=== PATIENT | female | born 1985 | race Caucasian/White ===

== ENCOUNTER 2021-02-04 14:58 | Emergency (ER) | payer OTHER ==
--- OUTSIDE RECORDS SUMMARY | 2021-02-04 15:01 | XMS REPORT | Continuity of Care Document ---
:1985 Author Organization [facility] t Address [address] [place] [address] Care Team Providers Name Role Phone Steven Primary Care Physician Unavailable Fabian Hansen DO Attending Clinician Lab, Fam Pob I Attending Clinician Unavailable Hemalatha FAULKNER Attending Clinician Mina SAWYER Attending Clinician Unavailable Piedad Carlson Attending Clinician Unavailable Payers Payer Name Policy Type Policy Effective Expiration Source Number Date Date 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 Family History Family Member Diagnosis Comments Start Date Stop Date Source Natural father Hyperlipidemia Leighannto n Spiritism Maternal Multiple sclerosis Leighannto n Spiritism grandfather Natural mother Arthritis Primo Me thodist Social History Social Habit Start Date Stop Date Quantity Comments Source Tobacco use and 2020-05-31 2020-05-31 Never used Primo Jackson ethodist exposure 00:00:00 00:00:00 Alcohol intake 2020-05-31 2020-05-31 Current drinker Carina on Spiritism 00:00:00 00:00:00 of alcohol (finding) Sex [birth year] F Primo Jackson ethodist 00:00:00 00:00:00 Smoking Status Start Date Stop Date Source Never smoker [place] Ericais t Medications Ordered Filled Start Stop Current Ordering Indication Dosage Frequency Signature Comments Components Source Medication Medication Date Date Medication? Clinician (SIG) Name Name budesonide- Yes 2{puff} Inhale 2 [place] formoteroL 8- puffs as Metho di (SYMBICORT) 08:26: needed. st 160-4.5 13 mcg/actuati on inhaler fluticasone Yes 2{spray 2 sprays [place] propionate 05-31 } by Each Method i (FLONASE) 08:26: Nare route st 50 13 as needed mcg/actuati for on nasal rhinitis. spray abatacept/m 2019-0 Yes Q30D every 30 [place] altose 7-21 (thirty) Methodi (ORENCIA, 00:00: days. st WITH 00 MALTOSE, IV) gabapentin 2019- Yes 600mg QD 600 mg [place] (NEURONTIN) 01 nightly. Meth noe 300 mg 00:00: st capsule 00 amphetamine 2019-0 Yes daily. [place] -dextroamph 10-06 [facility] etamine XR 00:00: st (Adderall 00 XR) 30 MG 24 hr capsule DULoxetine 2018-10 Yes 1{capsu Take 1 [place] (CYMBALTA) 0-22 le} capsule by Met hodi 60 MG 00:00: mouth st capsule 00 daily. meloxicam 2018-10 Yes 1{tbl} Take 1 [place] (MOBIC) 15 0-22 tablet by Meth noe mg tablet 00:00: mouth st 00 daily. cyanocobala 2016-0 Yes daily. Leighann hutton min, 10-06 Methodi vitamin 00:00: st B-12, (B-12 00 Compliance) 1,000 mcg/mL kit cholecalcif 2013-0 Yes daily. Leighann hutton kevin, 10-06 [facility] vitamin D3, 00:00: st 50 mcg 00 (2,000 unit) capsule capsule cetirizine Yes 10mg Take 10 mg [place] (ZyrTEC) 10 10-06 by mouth Meth noe MG tablet 00:00: daily. st 00 Vital Signs Vital Name Observation Time Observation Value Comments Source Body weight 2020-06-05 19:00:00 62.596 kg Primo Nath BMI 2020-06-05 19:00:00 22.96 kg/m2 Primo Nath Systolic blood 2020-05-31 08:24:00 123 mm[Hg] Charito Nath pressure Diastolic blood 2020-05-31 08:24:00 87 mm[Hg] Carina Nath pressure Heart rate 2020-05-31 08:24:00 86 /min Primo Nath Body height 2020-05-31 08:24:00 165.1 cm Primo Nath Procedures Procedure Date / Time Performed Performing Clinician Sour chase MRI BRAIN W WO CONTRAST 2020-06-05 20:40:32 Marylin Penny MRI CERVICAL SPINE W WO 2020-06-05 20:38:00 Marylin Penny CONTRAST T4, FREE 2020-05-31 09:48:00 Marylin Penny THYROID STIMULATING 2020-05-31 09:48:00 Marylin Penny HORMONE VITAMIN E LEVEL, PLASMA 2020-05-31 09:48:00 Marylin Penny OR SERUM MAGNESIUM LEVEL 2020-05-31 09:48:00 Marylin Penny CALCIUM LEVEL 2020-05-31 09:48:00 Marylin Penny Plan of Care Planned Activity Planned Date Details Comments Source Future Scheduled 2021-05-06 INFLUENZA VACCINE Charito bates Spiritism Test 00:00:00 [code = INFLUENZA VACCINE] Future Scheduled 2004 Screening for [facility] Me thodist Test 00:00:00 malignant neoplasm of cervix (procedure) [code = 930581289] Future Scheduled 2001 Hepatitis C [place] Met hodist Test 00:00:00 screening (procedure) [code = 917122979] Future Scheduled 1999 COVID-19 VACCINE (1) Ger mccollum Spiritism Test 00:00:00 [code = COVID-19 VACCINE (1)] Encounters Start End Encounter Admission Attending Care Care Encounter Source Date/Time Date/Time Type Type Clinicians Facility Department ID 2020-12-25 2020-12-25 Patient Tyr[place], [facility] [id number] 00:00:00 00:00:00 Outreach [facility] [id number] [facility] [id number] PAVILLION [id number] 2020-11-08 2020-11-08 Laboratory Lab, [facility] [id number] 15:56:55 16:16:55 Only Fam Pob [facility] [id number] [place] [id number] Professio [id number] nal [address] 2020-06-05 2020-06-05 Outpatient [facility] [id number] [place] 00:00:00 00:00:00 MARYLIN 497 Method i 2020-06-05 2020-06-05 Outpatient [facility] [id number] [place] 00:00:00 00:00:00 MARYLIN 160 Method i 2020-05-31 2020-05-31 Outpatient [facility] [id number] [place] 00:00:00 00:00:00 MARYLIN [address] 2018-12-29 2018-12-29 Outpatient [facility], SWOBGYN SWOBGYN [id number] [facility] 09:13:00 09:13:00 Elida Meier Results Test Description Test Time Test Comments Results Result [facility] e Comments MRI Brain W Wo 2020-06-05 [facility] [place] Contrast 21:12:[address] 06/05/2020 9:15 PM CDT Study:MRI BRAIN W WO CONTRASTHistory:R2 5.1 Tremor unspecified, R41.3 Other amnesia, Memory loss tremor myoclonic jerksCOMPARISON:No ne.TECHNIQUE: Multiplanar multisequence MR images of the brain without and with IV contrast.FINDINGS: Parenchymal volume is normal. No white matter signal abnormality. No abnormal enhancement. A prominent perivascular space in the left midbrain variant anatomy. There is no acute infarct, hemorrhage, midline shift, hydrocephalus, extra-axial collections, or edema. The orbits are unremarkable. The visualized paranasal sinuses and mastoid air cells are without significant fluid signal. The calvarium is unremarkable.IMPRE SSION:No intracranial abnormality.[facility]-2 [id number] MRI Cervical 2020-06-05 Hm Interface, [place] Spine W Wo 21:12:[address] Contrast 06/05/2020 9:15 PM CDT Study:MRI CERVICAL SPINE W WO CONTRASTHistory:R2 5.1 Tremor unspecified, G25.3 Myoclonus, Tremor myoclonus decreased sensation on right sideCOMPARISON:Non eTECHNIQUE: Multiplanar multisequence MR images of the cervical spine obtained without contrast.FINDINGS: There is some straightening of the cervical lordosis from mild degenerative change. There are no subluxations. Vertebral body heights within normal limits. No acute marrow signal abnormalities are present.C1/2: No canal stenosis.C2-3: Normal disc height without protrusion. No canal stenosis. No foraminal stenosis.C3-4: Normal disc height without protrusion. No canal stenosis. No foraminal stenosis.C4-5:Mild disc height loss with shallow disc bulge. No canal stenosis. No foraminal stenosis.C5-6: Normal disc height with a broad shallow disc protrusion. No canal stenosis with No foraminal stenosis.C6-7: Normal disc height with shallow disc bulge. No canal stenosis. No foraminal stenosis.C7/T1: Normal disc height without protrusion. No canal stenosis. No foraminal stenosis.The spinal cord is normal in signal and volume. There is no abnormal enhancement. The paravertebral soft tissues are unremarkable.IMPRE SSION:Minimal degenerative changes without canal or foraminal stenosis. There is no abnormality of the spinal cord.[facility]-[id number] ZB Calcium level 2020-06-05 11:48:00 Test Item Value Reference Range Interpretation Comme nts Calcium (test code = 83321-3) 10.1 mg/dL 8.6-10.2 BENNIE (test code = BENNIE) FASTING:NOFASTING: NO RAC (test code = RAC) Performing Organization Information: Site ID: TOMI Name: [facility] Address: [address] [place] [address] Director: Puma MaldonadoistMagnesium [id number] 11:48:00 Test Item Value Reference Range Interpretation Comments Magnesium (test code 1.9 mg/dL 1.5-2.5 = 39627-2) BENNIE (test code = BENNIE) FASTING:NOFASTING: NO RAC (test code = RAC) Performing Organization Information: Site ID: TOMI Name: [facility] Address: [address] [place] [address] Director: Puma NathT4, [id number] 11:48:00 Test Item Value Reference Range Interpretation Comments T4, free (test code 0.8 ng/dL 0.8-1.8 = 3024-7) BENNIE (test code = FASTING:NOFASTING: NO BENNIE) RAC (test code = Performing Organization RAC) Information: Site ID: TOMI Name: [facility] Address: [address] [place] [address] Director: Puma Jansen [place] EricaistThyroid stimulating [id number] 11:48:00 Test Item Value Reference Range Interpretation Comments TSH (test code 1.17 mIU/L = 3016-3) Reference Range > or = 20 Years 0.40-4.50 Range s First trimester 0.26-2.66 Second trimeste r 0.55-2.73 Third trimester 0.43-2.91 BENNIE (test code FASTING:NOFASTING: NO = BENNIE) RAC (test code Performing = RAC) Organization Information: Site ID: TOMI Name: [facility] Address: [address] [place] [id number] Director: Puma Jansen [place] SpiritismVitamin E level, plasma or [id number] 11:48:00 Test Item Value Reference Range Interpretation Comments Alpha-tocoph 13.2 mg/L Reference Range kevin mg/L 5.7-19.9 mg /L (test code = Levels o f 1823-4) alpha-tocophero l <5 mg/L are consistent with Vitamin E defic iency in adults.Vitamin supplementation within 24 hours prior to blood draw may affect the accuracy of results. T his test was develo ped and its analytical performance characteristics have been determined by [employer]. It has not been cl eared or approved by theFDA. This assay has been validated pursu ant to the CLIA regula tions and is used for clinical purpos es. Gamma-tocoph 1.0 See_Comment This test was kevin mg/L developed and i ts (test code = analytical perf ormance 25208-5) characteristics have been determined by [employer]. It has not been cl eared or approved by theFDA. This assay has been validated pursu ant to the CLIA regula tions and is used for clinical purpos es. [Automated mess age] The system [employer] generated this result transmitted ref erence range: <4.4 mg/ L . The reference range was not used to int erpret this result as normal/abnormal . BENNIE (test FASTING:NOFASTING: code = BENNIE) NO RAC (test Performing code = RAC) Organization Information: Site ID: SLI Name: [facility] Address: [address] [place] [address] Director: Atilio Zhang M.D., Ph.D Primo Nath
[2021-02-04] MEDS ORDERED: HYDROCODONE/APAP 10/325 TAB ONE (15:57)
--- NOTE | 2021-02-04 16:18 | RAD REPORT ---
EXAM DESCRIPTION: RAD - Hand Left 3 View - 02/04/2021 4:07 pm CLINICAL HISTORY: PAIN COMPARISON: <Comparisons> FINDINGS: Fracture is seen along the base of the middle phalanx of the fifth finger with angulation present. No dislocation.
[2021-02-04] MEDS ORDERED: LIDOCAINE 1% MPF 30 ML VIAL ONE (16:59)
[2021-02-04] MEDS ORDERED: BUPIVACAINE 0.5% PF 10 ML VIAL ONE (16:59)
[2021-02-04] MEDS ORDERED: LIDOCAINE 1% MPF 5 ML VIAL ONE (17:02)
--- NOTE | 2021-02-04 17:22 | EDPHYS ---
Physician Documentation [facility] Name: Camilla Moseley Age: 35 yrs Sex: Female : 1985 Arrival Date: 02/04/2021 Time: 14:58 Bed 15 Private MD: ED Physician Elif Dotson HPI: 02/04 16:55 This 35 yrs old Female presents to ER via Wheelchair with complaints of kb Finger Injury. 16:55 The patient or guardian reports decreased range of motion, deformity, injury, pain, kb swelling, tenderness. The complaints affect the left little finger. Context: The problem was sustained at home, resulted from a direct blow. Onset: The symptoms/episode began/occurred just prior to arrival. Modifying factors: The symptoms are alleviated by nothing, the symptoms are aggravated by nothing. Associated signs and symptoms: The patient has no apparent associated signs or symptoms. Severity of symptoms: At their worst the symptoms were moderate, in the emergency department the symptoms are unchanged. The patient has not experienced similar symptoms in the past. The patient has not recently seen a physician. Pt was getting sunscreen out of the medicine cabinet and the cabinet fell. Pt reached to catch it and injured her hand. TROUBLE LOCATER: 15:33 LMP 01/28/2021 ca1 Historical: - Allergies: 15:33 No Known Allergies; ca1 - Home Meds: 15:33 None [Active]; ca1 - PMHx: 15:33 None; ca1 - PSHx: 15:33 ; breast augmentation; ca1 - Immunization history:: Adult Immunizations not immunized, Flu vaccine is not up to date. - Social history:: Smoking status: Patient denies any tobacco usage or history of. ROS: 16:47 Constitutional: Negative for fever, chills, and weight loss, Skin: Negative for injury, kb rash, and discoloration, Neuro: Negative for headache, weakness, numbness, tingling, and seizure. 16:47 MS/extremity: Positive for injury or acute deformity, decreased range of motion, pain, swelling, tenderness, of the left little finger. Exam: 16:47 Constitutional: This is a well developed, well nourished patient who is awake, alert, kb and in no acute distress. Head/Face: Normocephalic, atraumatic. Respiratory: Respirations even and unlabored. No increased work of breathing, no retractions or nasal flaring. Skin: Warm, dry with normal turgor. Normal color. Neuro: Awake and alert, GCS 15, oriented to person, place, time, and situation. Moves all extremities. Normal gait. 16:47 Musculoskeletal/extremity: Extremities: grossly normal except: noted in the left little finger: decreased ROM, pain, swelling, tenderness, ROM: limited active range of motion due to pain, in the left little finger, Circulation is intact in all extremities. Sensation intact. Vital Signs: 15:30 BP 92 / 59; Pulse 76; Resp 18 S; Temp 97.2(TE); Pulse Ox 98% on R/A; Weight 63.05 kg ca1 (R); Height 5 ft. 5 in. (165.10 cm) (R); Pain 9/10; 16:25 BP 108 / 80; Pulse 68; Resp 16; Pulse Ox 100% on R/A; zb 17:32 BP 102 / 75; Pulse 65; Resp 16; Pulse Ox 97% on R/A; zb 15:30 Body Mass Index 23.13 (63.05 kg, 165.10 cm) ca1 Procedures: 16:50 Nerve block: (digital) of palmar aspect of proximal phalanx of left little finger kb Medication: Lidocaine 1% without epinephrine Marcaine 0.5%, Amount: 3 mls were injected, Effect: the patient has resolution of the pain, Set up for procedure. Performed by Avril KERR Patient tolerated well. 17:14 Reduction: of the left little finger, using traction, Immobilized with finger splint, kb Patient tolerated well. MDM: 16:07 Patient medically screened. kb 16:42 Data reviewed: vital signs, nurses notes. Data interpreted: Pulse oximetry: on room air kb is 100 %. Interpretation: normal. Counseling: I had a detailed discussion with the patient and/or guardian regarding: the historical points, exam findings, and any diagnostic results supporting the discharge/admit diagnosis, the need for outpatient follow up, a orthopedic surgeon, to return to the emergency department if symptoms worsen or persist or if there are any questions or concerns that arise at home. 02/04 15:34 Order name: Hand Left 3 View XRAY; Complete Time: 16:20 ca1 02/04 16:26 Order name: Finger Splint; Complete Time: 16:44 kb Administered Medications: 15:38 Drug: [place] (HYDROcodone-acetaminophen) 10 mg-325 mg 1 tabs {Note: rass 0.} Route: PO; ca1 16:28 Follow up: Response: No adverse reaction; No change in condition; Pain is decreased; zb RASS: Alert and Calm (0) 16:44 Drug: Marcaine (bupivacaine) (0.5 %) 1 vials {Note: Administered by ECP .} Volume: 10 zb ml; Route: Infiltration; 16:44 Drug: Lidocaine (1 %) 5 mg {Note: Administered by ECP. placed at bedside. .} Route: zb Infiltration; Disposition: 02/04/21 17:21 Discharged to Home. Impression: Displaced fracture of medial phalanx of left little finger. - Condition is Stable. - Discharge Instructions: Finger Fracture, [id number]. - Prescriptions for Tramadol 50 mg Oral Tablet - take 1 tablet by ORAL route every 8 hours as needed; 12 tablet. - Medication Reconciliation Form, Thank You Letter, Antibiotic Education, Prescription Opioid Use, Work release form form. - Follow up: Emergency Department; When: As needed; Reason: Worsening of condition. Follow up: Private Physician; When: 2 - 3 days; Reason: Recheck today's complaints, Continuance of care, Re-evaluation by your physician. Addendum: 02/07/2021 20:21 Co-signature as Attending Physician, Elif Dotson MD. m a2 Signatures: Dispatcher [employer] EDKY Avril Bryant, REVENUE INSPECTOR-C REVENUE INSPECTOR-CkElif Roberson MD MD ma2 Kay Castro RN RN ca1 Nedra Trammell RN RN zb Corrections: (The following items were deleted from the chart) 02/04 16:42 16:42 Counseling: I had a detailed discussion with the patient and/or guardian dina regarding: the historical points, exam findings, and any diagnostic results supporting the discharge/admit diagnosis, the need for outpatient follow up, a family practitioner, to return to the emergency department if symptoms worsen or persist or if there are any questions or concerns that arise at home, dina 17:34 17:21 02/04/2021 17:21 Discharged to Home. Impression: Displaced fracture of medial zb phalanx of left little finger. Condition is Stable. Forms are Medication Reconciliation Form, Thank You Letter, Antibiotic Education, Prescription Opioid Use. Follow up: Emergency Department; When: As needed; Reason: Worsening of condition. Follow up: Private Physician; When: 2 - 3 days; Reason: Recheck today's complaints, Continuance of care, Re-evaluation by your physician. kb
--- NOTE | 2021-02-04 17:22 | ER ---
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 Coronavirus screen: Client denies travel out of the [place] in the last 14 days. At this time, the client does not indicate any symptoms associated with coronavirus-19. Ebola Screen: Patient negative for fever greater than or equal to 101.5 degrees Fahrenheit, and additional compatible Ebola Virus Disease symptoms Patient denies exposure to infectious person. Patient denies travel to an Ebola-affected area in the 21 days before illness onset. No symptoms or risks identified at this time. Initial Sepsis Screen: Does the patient meet any 2 criteria? No. Patient's initial sepsis screen is negative. Does the patient have a suspected source of infection? Yes:. Risk Assessment: Do you want to hurt yourself or someone else? Patient reports no desire to harm self or others. Onset of symptoms was February 04, 2021. 15:30 Method Of Arrival: Wheelchair ca1 15:30 Acuity: MARY ELLEN 4 ca1 Triage Assessment: 16:28 Injury Description: Bruise. zb BUSINESS PROCESS SPECIALIST: 15:33 LMP 01/28/2021 ca1 Historical: - Allergies: 15:33 No Known Allergies; ca1 - Home Meds: 15:33 None [Active]; ca1 - PMHx: 15:33 None; ca1 - PSHx: 15:33 ; breast augmentation; ca1 - Immunization history:: Adult Immunizations not immunized, Flu vaccine is not up to date. - Social history:: Smoking status: Patient denies any tobacco usage or history of. Screenin:25 Abuse screen: Denies threats or abuse. Denies injuries from another. Abuse screen: zb Denies threats or abuse. Nutritional screening: No deficits noted. Tuberculosis screening: No symptoms or risk factors identified. Fall Risk None identified. Assessment: 16:26 General: Appears in no apparent distress. uncomfortable, Behavior is calm, cooperative, zb appropriate for age. Pain: Complains of pain in lateral aspect of left wrist, dorsal aspect of proximal phalanx of left middle finger, dorsal aspect of proximal phalanx of left ring finger and left little finger Pain currently is 5 out of 10 on a pain scale. Is continuous. Neuro: Level of Consciousness is awake, alert, obeys commands, Oriented to person, place, time, situation. Cardiovascular: Patient's skin is warm and dry. Respiratory: Airway is patent Respiratory effort is even, unlabored, Respiratory pattern is regular, symmetrical. Derm: Skin is intact, is healthy with good turgor, Bruising that is on dorsal aspect of middle phalanx of left little finger and dorsal aspect of proximal phalanx of left little finger light greenish color . Musculoskeletal: Swelling present in left little finger. 16:44 Reassessment: ECP at bedside. zb 17:30 Reassessment: Patient appears in no apparent distress at this time. Patient and/or zb family updated on plan of care and expected duration. Pain level reassessed. Patient is alert, oriented x 3, equal unlabored respirations, skin warm/dry/pink. d/c instructions. splint applied. ice pack applied. Vital Signs: 15:30 BP 92 / 59; Pulse 76; Resp 18 S; Temp 97.2(TE); Pulse Ox 98% on R/A; Weight 63.05 kg ca1 (R); Height 5 ft. 5 in. (165.10 cm) (R); Pain 9/10; 16:25 BP 108 / 80; Pulse 68; Resp 16; Pulse Ox 100% on R/A; zb 17:32 BP 102 / 75; Pulse 65; Resp 16; Pulse Ox 97% on R/A; zb 15:30 Body Mass Index 23.13 (63.05 kg, 165.10 cm) ca1 ED Course: 14:58 Patient arrived in ED. as 15:32 Triage completed. ca1 15:33 Arm band placed on right wrist. ca1 16:06 Hand Left 3 View XRAY In Process Unspecified. EDMS 16:07 Avril Bryant FNP-C is PHCP. kb 16:07 Elif Dotson MD is Attending Physician. kb 16:16 Nedra Tramemll RN is Primary Nurse. zb 16:25 Patient has correct armband on for positive identification. Bed in low position. Call zb light in reach. Side rails up X 1. Adult w/ patient. Pulse ox on. NIBP on. Door closed. Noise minimized. Ice pack to injury. Verbal reassurance given. 17:34 No provider procedures requiring assistance completed. Patient did not have IV access zb during this emergency room visit. Administered Medications: 15:38 Drug: [place] (HYDROcodone-acetaminophen) 10 mg-325 mg 1 tabs {Note: rass 0.} Route: PO; ca1 16:28 Follow up: Response: No adverse reaction; No change in condition; Pain is decreased; zb RASS: Alert and Calm (0) 16:44 Drug: Marcaine (bupivacaine) (0.5 %) 1 vials {Note: Administered by ECP .} Volume: 10 zb ml; Route: Infiltration; 16:44 Drug: Lidocaine (1 %) 5 mg {Note: Administered by ECP. placed at bedside. .} Route: zb Infiltration; Outcome: 17:21 Discharge ordered by . dina 17:34 Discharged to home ambulatory, with family. zb 17:34 Condition: stable 17:34 Discharge instructions given to patient, family, Instructed on discharge instructions, follow up and referral plans. medication usage, Demonstrated understanding of instructions, follow-up care, medications, Prescriptions given X 1. 17:34 Patient left the ED. zb Signatures: Dispatcher [employer] Avril Luna, CIRILO WAKEFIELD-Cristina Subramanian Cheryl, RN RN ca1 Nedra Trammell RN RN zb
[2021-02-04 17:44] VITALS: TEMP 97.2
[2021-02-04 17:47] VITALS: BP 102/75; O2SAT 97
== END 2021-02-04 17:34 | disposition home or self-care (01) ==
LOC: ER 14:58
PROC: 0PSVXZZ Reposition Left Finger Phalanx, External Approach (ICD-10-PCS; principal; 2021-02-04)
DX: S62.627A Displaced fracture of middle phalanx of left little finger, initial encounter for closed fracture (principal); W20.8XXA Other cause of strike by thrown, projected or falling object, initial encounter
CPT/HCPCS: 64450; 99284